=== PATIENT | male | born 1990 | race Caucasian/White ===

== ENCOUNTER 2020-02-02 15:18 | Inpatient (IN) | payer BC, OTHER ==
[~2020-02-02] VITALS: Ht 188 cm; Wt 77.0 kg
[2020-02-02 17:24] LABS: Basophils # (auto) 0.1 10 ^3/uL (0-0.2); Eosinophils # (auto) 0.1 10 ^3/uL (0-0.8); Eosinophils % (auto) 0.8 % (0.0-7.0); Hematocrit 47.9 % (41.0-53.0); Hemoglobin 16.2 g/dL (13.5-17.5); Lymphocytes # (auto) 1.6 10 ^3/uL (0.4-5.4); Lymphocytes % (auto) 19.2 % (10.0-50.0); Mean Corpuscular Hemoglobin 30.6 pg (28.0-32.0); Mean Corpuscular Hgb Conc. 33.8 g/dL (32.0-36.0); Mean Corpuscular Volume 90.4 fL (80.0-100.0); Monocytes # (auto) 0.8 10 ^3/uL (0-1.3); Neutrophils # (auto) 5.9 10 ^3/uL (1.6-8.6); Nucleated Red Blood Cells % 0.1 %; Platelet Count (auto) 329 10^3/uL (140-450); White Blood Cell 8.4 10^3/uL (4.4-10.8)
[2020-02-02 17:36] LABS: INR 1.13 (0.9-1.15); Partial Thromboplastin Time 28.1 sec (23.64-32.05)
[2020-02-02 17:38] LABS: Albumin 3.2 g/dL (3.4-5.0); BUN/Creatinine Ratio 15.2; Calcium 8.8 mg/dL (8.5-10.1); Potassium 4.2 mmol/L (3.5-5.1)
[2020-02-02 17:56] LABS: Bilirubin, Total 6.7 mg/dL (0.2-1.0); Total Protein 7.4 g/dL (6.4-8.2)
[2020-02-02] MEDS ORDERED: IOHEXOL 300 MG/ML 100ML BOTTLE IJ ONE (18:30)
[2020-02-02] MEDS ORDERED: methylPREDNISolone SOD SUCC 125 MG/2 ML VL IV ONE (18:45)
[2020-02-02] MEDS ORDERED: FAMOTIDINE (10MG/ML) 2ML VL IV ONE (18:45)
[2020-02-02] MEDS ORDERED: diphenhdrAMINE HCL 50 MG/1 ML VL IV ONE (18:45)
[2020-02-02] MEDS ORDERED: TEMAZEPAM 15 MG CAP PO PRN (21:45)
[2020-02-02] MEDS ORDERED: ONDANSETRON HCL 4 MG/2 ML VIAL IV PRN (21:45)
[2020-02-02] MEDS: SODIUM CHLORIDE 0.9% 1,000 ML IV SCH ×3 (22:00→23:26)
[2020-02-02] MEDS ORDERED: FAMOTIDINE 20 MG TAB PO SCH (22:00)
[2020-02-02 22:45] VITALS: BP 124/74
--- NOTE | 2020-02-02 22:45 | NUR ---
MS admit from [facility] admitted to tele/MS after SBAR received. Patient oriented to Nayeli Orozco, primary RN, unit, room, bed, and unit policies regarding patient care and visiting hours. Patient weighed by bedscale and encouraged to call if they need something. All questions and concerns addressed, patient verbalized understanding. Note:
[2020-02-03 05:00] VITALS: BP 113/61
[2020-02-03 06:15] LABS: Basophils # (auto) 0 10 ^3/uL (0-0.2); Basophils % (auto) 0.2 % (0.0-2.0); Eosinophils # (auto) 0 10 ^3/uL (0-0.8); Eosinophils % (auto) 0.1 % (0.0-7.0); Hematocrit 45.9 % (41.0-53.0); Hemoglobin 15.5 g/dL (13.5-17.5); Lymphocytes % (auto) 14.9 % (10.0-50.0); Mean Corpuscular Hemoglobin 31.1 pg (28.0-32.0); Mean Corpuscular Hgb Conc. 33.9 g/dL (32.0-36.0); Mean Corpuscular Volume 91.7 fL (80.0-100.0); Monocytes # (auto) 0.1 10 ^3/uL (0-1.3); Monocytes % (auto) 0.8 % (0.0-12.0); Neutrophils # (auto) 5.7 10 ^3/uL (1.6-8.6); Nucleated Red Blood Cells % 0.1 %; Platelet Count (auto) 277 10^3/uL (140-450); Red Blood Cells 5.01 10^6/uL (4.5-5.90); White Blood Cell 6.8 10^3/uL (4.4-10.8)
[2020-02-03 06:43] LABS: Potassium 4.4 mmol/L (3.5-5.1)
--- NOTE | 2020-02-03 07:00 | NUR ---
Opening Shift Note Received report on the patient. Awake lying in bed. Patient shows no signs of distress at this time. Discussed the plan of care with the patient. Bed in lowest position, side rails up x2, and call light is within reach.
[2020-02-03 07:17] LABS: Albumin 3.2 g/dL (3.4-5.0); BUN/Creatinine Ratio 15.4; Total Protein 7.2 g/dL (6.4-8.2)
[2020-02-03 09:00] VITALS: BP 122/72
[2020-02-03 09:20] LABS: Urine Bacteria NONE SEEN /hpf (None Seen); Urine Blood Negative /uL (Negative); Urine Specific Gravity 1.012 (1.001-1.035); Urine WBC <1 /hpf (0 - 3)
[2020-02-03 09:33] LABS: Alcohol, Urine < 3.0 mg/dL (0-10); Amphetamine Screen, Urine NEGATIVE (NEGATIVE); Barbiturate Scree,Urine NEGATIVE (NEGATIVE); Benzodiazephine Screen, Urine NEGATIVE (NEGATIVE); Cannabinoid Screen, Urine NEGATIVE (NEGATIVE); Cocaine Screen, Urine NEGATIVE (NEGATIVE); Opiate Scree,Urine NEGATIVE (NEGATIVE); Phencyclidine Screen, Urine NEGATIVE (NEGATIVE)
--- NOTE | 2020-02-03 10:34 | NUR ---
Dr Ivy at bedside. New orders received.
[2020-02-03] MEDS: PANTOPRAZOLE 40 MG TAB PO SCH ×2 (10:45→21:27)
[2020-02-03 11:04] LABS: Blood Alcohol < 3.0 mg/dL (0-5); Magnesium 2.3 mg/dL (1.6-2.6)
[2020-02-03 11:22] LABS: Acetaminophen < 2.0 ug/mL (10-30); Salicylate < 1.7 mg/dL (2.8-20.0)
[2020-02-03 13:00] VITALS: BP 124/73
--- NOTE | 2020-02-03 13:03 | NUR ---
Dr Solis at bedside. New orders received
[2020-02-03] MEDS: SODIUM CHLORIDE 0.9% 1,000 ML IV SCH (15:07)
[2020-02-03 16:30] VITALS: BP 113/63
[2020-02-03 17:53] LABS: Free T4 (Free Thyroxine) 1.08 ng/dL (0.89-1.76)
[2020-02-03 17:54] LABS: Folate (Folic Acid) 22.51 ng/mL (5.38-24)
--- NOTE | 2020-02-03 19:07 | NUR ---
Endorsed care to MARSHA Ceja. Patient shows no signs of distress.
--- NOTE | 2020-02-03 20:00 | NUR ---
Opening Shift Note Assumed care of patient, awake and alert. No S/S of distress/SOB or pain. Instructed on POC and to call for assist PRN, will continue to monitor for changes Q1hr and PRN.
[2020-02-04 06:39] LABS: Potassium 4.4 mmol/L (3.5-5.1)
[2020-02-04 06:54] LABS: Albumin 2.9 g/dL (3.4-5.0); BUN/Creatinine Ratio 16.3; Bilirubin, Total 3.9 mg/dL (0.2-1.0); Calcium 8.2 mg/dL (8.5-10.1); Total Protein 6.2 g/dL (6.4-8.2)
--- NOTE | 2020-02-04 07:00 | NUR ---
Opening Shift Note Received report on the patient. Awake lying in bed. Patient shows no signs of distress at this time. Tried to discussed the plan of care with the patient, but there was a language barrier. Bed in lowest position, side rails up x2, and call light is within reach.
[2020-02-04 09:00] VITALS: BP 108/67
--- NOTE | 2020-02-04 09:07 | NUR ---
Dr Solis at bedside. No new orders received.
[2020-02-04] MEDS: PANTOPRAZOLE 40 MG TAB PO SCH ×2 (09:17→21:39)
[2020-02-04] MEDS ORDERED: LIDOCAINE VISCOUS 2% 15ML UD ONE (09:30)
[2020-02-04] MEDS ORDERED: SODIUM CHLORIDE LOCK 10 ML ONE (09:30)
[2020-02-04] MEDS ORDERED: diphenhdrAMINE HCL 50 MG/1 ML VL ONE (09:31)
--- NOTE | 2020-02-04 10:22 | NUR ---
Patient down to OR for EGD. Patient shows no signs of distress at this time.
[2020-02-04] MEDS: fentaNYL CITRATE 100 MCG/2 ML VL ONE ×2 (10:41→10:45)
[2020-02-04] MEDS: MIDAZOLAM HCL 5 MG/ML-1ML VIAL ONE ×2 (10:41→10:45)
[2020-02-04 10:50] LABS: Hepatitis A Ab IgM Negative; Hepatitis B Core IgM Negative; Hepatitis B Surface Antigen Negative (Negative); Hepatitis C Antibody Negative (Negative)
[2020-02-04 13:00] VITALS: BP 128/76
[2020-02-04 16:37] VITALS: BP 112/69
--- NOTE | 2020-02-04 19:11 | NUR ---
Endorsed care to MARSHA Ceja. Patient shows no signs of distress.
[2020-02-04 22:00] VITALS: BP 102/68
[2020-02-04] MEDS: SODIUM CHLORIDE 0.9% 1,000 ML IV SCH (23:45)
[2020-02-05 05:49] VITALS: BP 117/73
--- NOTE | 2020-02-05 07:30 | NUR ---
OPENING NOTE ASSUMED CARE OF PT. NO S/S OD DISTRESS, SOB, OR PAIN. PT EXPRESSED DESIRE TO GO HOME TODAY. PT TOLD THAT MD WILL ROUND AND SPEAK TO HIM ABOUT THEIR CONCERNS FOR THIS PT. SAFETY MEASURES IN PLACE. WILL CONTINUE TO MONITOR Q1H AND PRN. PT ADVISED TO CALL FOR ASSISTANCE AND QUESTIONS.
[2020-02-05 07:31] LABS: Potassium 4.3 mmol/L (3.5-5.1)
[2020-02-05 07:45] LABS: Albumin 3.1 g/dL (3.4-5.0); Bilirubin, Total 3.5 mg/dL (0.2-1.0); Calcium 8.4 mg/dL (8.5-10.1); Total Protein 6.6 g/dL (6.4-8.2)
[2020-02-05 09:00] VITALS: BP 158/89
[2020-02-05] MEDS: SODIUM CHLORIDE 0.9% 1,000 ML IV SCH (09:55)
[2020-02-05] MEDS: PANTOPRAZOLE 40 MG TAB PO SCH ×2 (09:55→21:50)
--- NOTE | 2020-02-05 11:16 | NUR ---
Dr Ivy at bedside
--- NOTE | 2020-02-05 12:04 | NUR ---
Dr Solis at bedside
--- NOTE | 2020-02-05 12:55 | NUR ---
Dr Ivy at bedside. New orders received.
[2020-02-05 13:00] VITALS: BP 139/89
--- NOTE | 2020-02-05 14:23 | NUR ---
Informed Dr Solis that the patient was previously positive for COVID 19. No new orders.
[2020-02-05 17:00] VITALS: BP 121/79
[2020-02-05] MEDS ORDERED: LORazepam 0.5 MG TAB PO PRN (17:30)
--- NOTE | 2020-02-05 19:18 | NUR ---
Opening Shift Note Assumed care of patient. Patient is awake, alert, and oriented X 4. No S/S of respiratory distress noted. Respirations are regular, non-labored. No pain, nausea, or vomiting reported. Pt is on RA. Bed in lowest possible position, brakes locked, side rails up X 2, call light within reach. POC discussed with the patient. Patient instructed to call for assistance PRN. Will continue to monitor for changes Q1hr and PRN.
[2020-02-05 20:00] VITALS: BP 121/74
[2020-02-05 22:00] VITALS: BP 121/74
[2020-02-06] MEDS: SODIUM CHLORIDE 0.9% 1,000 ML IV SCH ×2 (01:33→13:15)
[2020-02-06 05:30] VITALS: BP 109/70
[2020-02-06 07:20] LABS: Albumin 2.6 g/dL (3.4-5.0); Calcium 8.2 mg/dL (8.5-10.1); Potassium 3.8 mmol/L (3.5-5.1)
[2020-02-06 07:28] LABS: BUN/Creatinine Ratio 17.3; Bilirubin, Total 2.4 mg/dL (0.2-1.0)
[2020-02-06 09:00] VITALS: BP 129/90
[2020-02-06] MEDS: PANTOPRAZOLE 40 MG TAB PO SCH (10:17)
--- NOTE | 2020-02-06 11:30 | NUR ---
Hospitalist MD Solis at bedside, aware of patient status. New orders for D/C received, prescriptions in hard chart to be given to patient upon D/C. Per MD Solis, provide patient with info to followup with MD Solis at his clinic on . Patient is to call saturday and make appointment. Patient is to also call and make appointment to follow-up with MD Ivy on Saturday the 01/16/2020. Will provide patient info to call and make follow-up appointment and will cont to monitor patient at this time.
[2020-02-06 12:20] VITALS: BP 123/79
[2020-02-06 12:40] VITALS: BP 123/79
--- NOTE | 2020-02-06 13:34 | NUR ---
Discharge instructions given as ordered. Encourage to follow up with PMD as instructed. All questions and concerns addressed. Patient verbalized understanding. Medication reconciliation form completed and copy given to patient. IV removed with catheter intact, pressure dressing applied. Patient ambulated to vehicle with all personal belongings, accompanied by staff. No distress noted at time of departure.
== END 2020-02-06 13:30 | disposition home or self-care (01) | DRG 442 ==
LOC: ER 15:18 → OVERFLOW 15:19 → WEST WING 22:31
PROVIDERS: ADMIT Nurse Practitioner; ATTEND Internal Medicine
PROC: 0DB68ZX Excision of Stomach, Via Natural or Artificial Opening Endoscopic, Diagnostic (ICD-10-PCS; principal; 2020-02-04 10:36)
DX: B17.9 Acute viral hepatitis, unspecified (principal); E44.1 Mild protein-calorie malnutrition; G43.909 Migraine, unspecified, not intractable, without status migrainosus; K20.9 Esophagitis, unspecified; K29.70 Gastritis, unspecified, without bleeding; K29.80 Duodenitis without bleeding; K27.9 Peptic ulcer, site unspecified, unspecified as acute or chronic, without hemorrhage or perforation; K44.9 Diaphragmatic hernia without obstruction or gangrene; K80.80 Other cholelithiasis without obstruction; Z86.19 Personal history of other infectious and parasitic diseases; Z68.21 Body mass index [BMI] 21.0-21.9, adult; Z88.5 Allergy status to narcotic agent; Z88.1 Allergy status to other antibiotic agents; F41.9 Anxiety disorder, unspecified
CPT/HCPCS: 36415; 74177; 74181; 76705; 80053; 80074; 80307; 80320; 80329; 81001; 82140; 82150; 82607; 82746; 83690; 83735; 84439; 84443; 85025; 85610; 85730; 86703; 96374; 96375; G0378; J2250; J3490

== ENCOUNTER → 2020-02-10 | Outpatient (CLI) | payer BC ==
[2020-02-10 10:56] LABS: Albumin 3.4 g/dL (3.4-5.0); BUN/Creatinine Ratio 11.5; Bilirubin, Total 3.5 mg/dL (0.2-1.0)
== END | disposition home or self-care (01) ==
LOC: LAB 09:28
PROVIDERS: ATTEND Internal Medicine
DX: B19.9 Unspecified viral hepatitis without hepatic coma (principal)
CPT/HCPCS: 36415; 80053

== ENCOUNTER → 2021-02-22 | Outpatient (CLI) | payer BC ==
[2021-02-22 12:16] LABS: Basophils # (auto) 0.1 10 ^3/uL (0-0.2); Basophils % (auto) 0.6 % (0.0-2.0); Eosinophils # (auto) 0.1 10 ^3/uL (0-0.8); Eosinophils % (auto) 0.7 % (0.0-7.0); Hematocrit 51.4 % (41.0-53.0); Hemoglobin 17.6 g/dL (13.5-17.5); Lymphocytes # (auto) 2.4 10 ^3/uL (0.4-5.4); Lymphocytes % (auto) 23.6 % (10.0-50.0); Mean Corpuscular Hemoglobin 30.8 pg (28.0-32.0); Mean Corpuscular Hgb Conc. 34.2 g/dL (32.0-36.0); Mean Corpuscular Volume 90.1 fL (80.0-100.0); Monocytes # (auto) 0.6 10 ^3/uL (0-1.3); Neutrophils # (auto) 6.9 10 ^3/uL (1.6-8.6); Neutrophils % (auto) 69.1 % (37.0-80.0); Nucleated Red Blood Cells % 0.2 %; Red Blood Cells 5.71 10^6/uL (4.5-5.90); Red Cell Distribution Width 12.4 % (11.8-14.3)
[2021-02-22 13:57] LABS: Albumin 3.9 g/dL (3.4-5.0); Potassium 4.4 mmol/L (3.5-5.1)
[2021-02-22 16:09] LABS: BUN/Creatinine Ratio 19.1; Bilirubin, Total 0.7 mg/dL (0.2-1.0); Calcium 8.9 mg/dL (8.5-10.1)
== END | disposition home or self-care (01) ==
LOC: LAB 12:00
PROVIDERS: ATTEND Internal Medicine
DX: R79.9 Abnormal finding of blood chemistry, unspecified (principal)
CPT/HCPCS: 36415; 80053; 80061; 82306; 82607; 83036; 84443; 85025